=== PATIENT | male | born 1965 | race Caucasian/White ===

== ENCOUNTER 2017-04-18 16:37 | Inpatient (IN) | payer SELFPAY ==
[~2017-04-18] VITALS: Ht 170.2 cm; Wt 70.0 kg
[2017-04-18 17:04] LABS: BASOPHIL COUNT 0.1 K/uL (0-0.1); EOSINOPHIL COUNT 0.1 K/uL (0-0.3); IMMATURE GRANULOCYTE (%) 0.3 % (0.0-0.7); INSTRUMENT ABS NEUTROPHIL CT 6.6 K/uL; LYMPHOCYTE COUNT 2.5 K/uL (1.0-2.8); MCH 28.7 PG (29.0-34.0); MCHC 34.1 G/DL (30.0-36.0); MCV 84.1 FL (86-99); MEAN PLAT.VOLUME 10.9 uM^3 (9.0-12.4); MONOCYTE (%) 9.7 % (3-12); NEUTROPHIL (%) 64.3 % (45-76); NEUTROPHIL COUNT 6.6 K/uL (1.8-6.4); PLATELET COUNT 195 K/uL (156-360); RBC DIS.WIDTH-CV 12.1 % (11.8-14.6); RBC DIS.WIDTH-SD 37.1 % (39-53); RED BLOOD COUNT 5.47 M/uL (4.00-5.50); WHITE BLOOD COUNT 10.2 K/uL (4.1-10.2)
[2017-04-18 17:08] LABS: CHLORIDE 107 mEq/L (99-109); POTASSIUM 3.2 mEq/L (3.7-5.4); SODIUM 142 mEq/L (136-147)
[2017-04-18 17:10] LABS: ADD MIUA? NO; BILIRUBIN NEGATIVE; BLOOD NEGATIVE; COLOR YELLOW ((YELLOW)); GLUCOSE (STRIP) NEGATIVE; KETONES NEGATIVE; LEUKOCYTES NEGATIVE; NITRITE NEGATIVE; PROTEIN (STRIP) NEGATIVE; SPECIFIC GRAVITY 1.008 (1.000-1.030); UCUL ADDED? NO; UROBILINOGEN 0.2 MG/DL (0.2-1.0)
[2017-04-18 17:10] LABS: GLUCOSE 105 mg/dL (70-99)
[2017-04-18 17:11] LABS: ANION GAP 8 MEQ/L (2-14)
[2017-04-18 17:12] LABS: TOTAL BILIRUBIN 0.4 mg/dL (0.0-1.0)
[2017-04-18 17:13] LABS: SERUM ETHYL ALCOHOL < 10 mg/dL
[2017-04-18 17:14] LABS: ALKALINE PHOSPHATASE 101 IU/L (3-129)
[2017-04-18 17:16] LABS: UREA NITROGEN (BUN) 12 mg/dL (9-23)
[2017-04-18 17:17] LABS: SALICYLATE < 5.0 MG/DL (15-30)
[2017-04-18 17:17] LABS: BASE EXCESS 7.8 mEq/L (-3 to +3); BICARBONATE 32.8 mEq/L (22-26); CARBOXY HGB 2.6 % (0-5); COMMENTS - BLOOD GASES A+C+; DEVICE 980; FI02 100 %; MECHANICAL RATE 18 resp/min; METHEMOGLOBIN 1.1 % (0-1.5); MODE A/C; PCO2 45 mm Hg (35-45); PO2 434 mm Hg (80-100); SITE RR; pH 7.47 (7.35-7.45)
[2017-04-18 17:18] LABS: PEEP 5 CM/H20; TIDAL VOLUME 500 ML
[2017-04-18 17:20] LABS: GFR ESTIMATE (CALCULATED) > 59 mL/min/
[2017-04-18 17:24] LABS: TROP-I INTERPRETATION NEGATIVE; TROPONIN-I < 0.01 ng/mL (0.0-0.30)
[2017-04-18] MEDS ORDERED: MOTRIN IB200 MG PO (18:41)
[2017-04-18 19:19] LABS: PROTHROMBIN TIME 11.3 SEC (10.2-12.9)
[2017-04-18 21:15] VITALS: BP 158/108
[2017-04-18 21:19] VITALS: BP 158/108
[2017-04-18 21:27] LABS: AMPHETAMINE NEGATIVE (500 ng/mL); BARBITURATES NEGATIVE (200 ng/mL); BENZODIAZEPINES NEGATIVE (150 ng/mL); COCAINE NEGATIVE (150 ng/mL); INTERNAL CONTROLS VALID? YES; METHADONE NEGATIVE (200 ng/mL); METHAMPHETAMINE NEGATIVE (500 ng/mL); OPIATES (MORPHINE) NEGATIVE (100 ng/mL); OXYCODONE NEGATIVE (100 ng/mL); PHENCYCLIDINE NEGATIVE (25 ng/mL); PROPOXYPHENE NEGATIVE (300 ng/mL); THC CANNABINOIDS NEGATIVE (50 ng/mL); TRICYCLIC ANTIDEPRESSANTS NEGATIVE (300 ng/mL)
[2017-04-18 21:30] VITALS: BP 143/100
[2017-04-18 22:00] VITALS: BP 140/98
[2017-04-18 23:00] VITALS: BP 136/98
[2017-04-18 23:12] LABS: METH RESISTANT S AUREUS PCR NEGATIVE (NEGATIVE)
[2017-04-18 23:13] LABS: PROBE CHECK PASS; SPECIMEN PROCESSING CONTROL PASS
[2017-04-19] VITALS (18 sets, daily range): BP systolic 131–174; BP diastolic 91–113
[2017-04-19 05:06] LABS: HEMATOCRIT 41.1 % (38.0-50.0); MCH 28.8 PG (29.0-34.0); MCHC 34.3 G/DL (30.0-36.0); MEAN PLAT.VOLUME 11.3 uM^3 (9.0-12.4); PLATELET COUNT 177 K/uL (156-360); RBC DIS.WIDTH-CV 12.2 % (11.8-14.6); RBC DIS.WIDTH-SD 37.2 % (39-53); RED BLOOD COUNT 4.89 M/uL (4.00-5.50); WHITE BLOOD COUNT 11.3 K/uL (4.1-10.2)
[2017-04-19 05:11] LABS: PROTHROMBIN TIME 11.6 SEC (10.2-12.9)
[2017-04-19 05:14] LABS: PTT 27.4 SEC (25-37)
[2017-04-19 05:19] LABS: CHLORIDE 114 mEq/L (99-109); POTASSIUM 3.7 mEq/L (3.7-5.4); SODIUM 141 mEq/L (136-147)
[2017-04-19 05:21] LABS: GLUCOSE 141 mg/dL (70-99)
[2017-04-19 05:22] LABS: ANION GAP 7 MEQ/L (2-14)
[2017-04-19 05:25] LABS: ALKALINE PHOSPHATASE 93 IU/L (3-129); GFR ESTIMATE (CALCULATED) > 59 mL/min/
[2017-04-19 05:26] LABS: ALKALINE PHOSPHATASE 92 IU/L (3-129); UREA NITROGEN (BUN) 7 mg/dL (9-23)
[2017-04-19 05:28] LABS: DIRECT BILIRUBIN 0.1 mg/dL (0.0-0.3)
[2017-04-19 05:29] LABS: CREATINE KINASE 68 IU/L (1-294)
[2017-04-19 05:38] LABS: TOTAL BILIRUBIN 0.3 mg/dL (0.0-1.0)
[2017-04-20] VITALS (8 sets, daily range): BP systolic 0–160; BP diastolic 0–109
[2017-04-20 09:01] LABS: HEMATOCRIT 41.3 % (38.0-50.0); MCH 28.6 PG (29.0-34.0); MCHC 33.2 G/DL (30.0-36.0); MCV 86.2 FL (86-99); RBC DIS.WIDTH-CV 12.3 % (11.8-14.6); RBC DIS.WIDTH-SD 39.5 % (39-53); RED BLOOD COUNT 4.79 M/uL (4.00-5.50); WHITE BLOOD COUNT 10.5 K/uL (4.1-10.2)
[2017-04-20 09:32] LABS: ALKALINE PHOSPHATASE 89 IU/L (3-129); ANION GAP 8 MEQ/L (2-14); CHLORIDE 106 MEQ/L (99-109); GFR ESTIMATE (CALCULATED) > 59 mL/min/; GLUCOSE 63 mg/dL (70-99); POTASSIUM 3.7 MEQ/L (3.7-5.4); SAMPLE HEMOLYSIS CHECK 0; SAMPLE ICTERIC CHECK 0; SAMPLE LIPEMIA CHECK 0; SODIUM 140 MEQ/L (136-147); TOTAL BILIRUBIN 0.7 MG/DL (0.0-1.0); UREA NITROGEN (BUN) 7 mg/dL (9-23)
[2017-04-20 09:36] LABS: MEAN PLAT.VOLUME 11.1 uM^3 (9.0-12.4); PLAT.SUFFICIENCY ADEQUATE; PLATELET COUNT 169 K/uL (156-360)
[2017-04-20 14:44] LABS: INTACT PARATHYROID HORMONE 116 pg/mL (10-69)
[2017-04-21 05:53] LABS: BASOPHIL COUNT 0.1 K/uL (0-0.1); EOSINOPHIL COUNT 0.1 K/uL (0-0.3); HEMATOCRIT 38.4 % (38.0-50.0); IMMATURE GRANULOCYTE (%) 0.4 % (0.0-0.7); IMMATURE GRANULOCYTE COUNT 0.1 K/uL; INSTRUMENT ABS NEUTROPHIL CT 8.3 K/uL; LYMPHOCYTE COUNT 1.7 K/uL (1.0-2.8); MCH 30.2 PG (29.0-34.0); MCHC 35.2 G/DL (30.0-36.0); MCV 85.9 FL (86-99); MEAN PLAT.VOLUME 11.8 uM^3 (9.0-12.4); MONOCYTE (%) 11.7 % (3-12); MONOCYTE COUNT 1.4 K/uL (0-0.8); NEUTROPHIL (%) 71.4 % (45-76); NEUTROPHIL COUNT 8.3 K/uL (1.8-6.4); PLATELET COUNT 166 K/uL (156-360); RBC DIS.WIDTH-CV 12.3 % (11.8-14.6); RBC DIS.WIDTH-SD 38.6 % (39-53); RED BLOOD COUNT 4.47 M/uL (4.00-5.50); WHITE BLOOD COUNT 11.6 K/uL (4.1-10.2)
[2017-04-21 06:22] LABS: ANION GAP 5 MEQ/L (2-14); CHLORIDE 110 MEQ/L (99-109); GFR ESTIMATE (CALCULATED) > 59 mL/min/; POTASSIUM 3.8 MEQ/L (3.7-5.4); SAMPLE HEMOLYSIS CHECK 0; SAMPLE ICTERIC CHECK 0; SAMPLE LIPEMIA CHECK 0; SODIUM 141 MEQ/L (136-147); UREA NITROGEN (BUN) 10 mg/dL (9-23)
[2017-04-21 06:24] LABS: GLUCOSE 105 mg/dL (70-99)
[2017-04-21 07:36] VITALS: BP 152/91
[2017-04-21] MEDS ORDERED: DOCUSATE SODIU100 MG PO (10:56)
[2017-04-21] MEDS ORDERED: LISINOPRIL10 MG PO (11:00)
== END 2017-04-21 12:50 | disposition home or self-care (01) | DRG 917 ==
LOC: EME 16:37 → EDBD 16:37 → EDOF 19:40 → 4WEST 19:40 → ENRESERV 19:47 → 4WEST 21:13 → ENRESERV 04-19 23:27 → 5EAST 04-20 01:38 → ENPENDDIS 04-21 → 5EAST 04-21 12:50
PROVIDERS: Emergency Medicine; Hospitalist; Internal Medicine Critical Care Medicine
DX: T62.0X1A Toxic effect of ingested mushrooms, accidental (unintentional), initial encounter (principal); R40.20 Unspecified coma; R56.9 Unspecified convulsions; M79.671 Pain in right foot; E83.52 Hypercalcemia; I10 Essential (primary) hypertension; K59.00 Constipation, unspecified
CPT/HCPCS: 36600; 70450; 71010; 73630; 80048; 80053; 80076; 81003; 82550; 82803; 83519 90; 83970; 84484; 85025; 85027; 85610; 85730; 87070; 87205; 87641; 90686; 93005; 94002; 94003; 99281; 99285; G0480; J2250; J2405; J2704; J3480; J7030; J7060; S0028